=== PATIENT | female | born 1960 | race Two or more races ===

== ENCOUNTER 2019-02-17 07:46 | Inpatient (IN) | payer SELFPAY ==
[~2019-02-17] VITALS: Ht 152.4 cm; Wt 69.8 kg
[2019-02-17] MEDS ORDERED: SODIUM CHLORIDE 0.9% 500 ML IVB ONE (08:21)
[2019-02-17] MEDS ORDERED: ONDANSETRON HCL 4 MG/2 ML VIAL IV ONE (08:30)
[2019-02-17] MEDS ORDERED: MORPHINE SULFATE 4 MG/ML SYR/VIAL IV ONE (08:30)
[2019-02-17 08:34] LABS: Basophils # (auto) 0 uL; Basophils % (auto) 0.5 % (0.0-2.0); Eosinophils # (auto) 0.1 uL; Eosinophils % (auto) 1.8 % (0.0-7.0); Hemoglobin 13.7 g/dL (12.2-16.2); Lymphocytes # (auto) 2.7 uL; Lymphocytes % (auto) 34.3 % (10.0-50.0); Mean Corpuscular Hemoglobin 29.5 pg (28.0-32.0); Mean Corpuscular Hgb Conc. 33.5 g/dL (32.0-36.0); Monocytes # (auto) 0.7 uL; Monocytes % (auto) 9.5 % (0.0-12.0); Neutrophils # (auto) 4.2 uL; Neutrophils % (auto) 53.9 % (37.0-80.0); Nucleated Red Blood Cells % 0.1 %; Platelet Count (auto) 316 10^3/uL (140-450); Red Blood Cells 4.66 10^6/uL (4.0-5.20); White Blood Cell 7.8 10^3/uL (4.4-10.8)
[2019-02-17 08:45] LABS: Alanine Aminotransferase 32 U/L (13-56); Albumin 3.4 g/dL (3.4-5.0); Anion Gap 10 (5-15); Aspartate Aminotransferase 26 U/L (15-37); BUN/Creatinine Ratio 24.6; Blood Urea Nitrogen 14 mg/dL (7-18); Calcium 8.4 mg/dL (8.5-10.1); Carbon Dioxide 24 mmol/L (21-32); Chloride 107 mmol/L (98-107); GFR African American 139 mL/min; GFR Non-African American 115 mL/min; Glucose 94 mg/dL (74-106); Potassium 3.8 mmol/L (3.5-5.1); Sodium 141 mmol/L (136-145)
[2019-02-17 08:48] LABS: Alkaline Phosphatase 99 U/L (45-117); Bilirubin, Total 0.3 mg/dL (0.2-1.0); Total Protein 8.4 g/dL (6.4-8.2)
[2019-02-17 09:11] LABS: Urine Bacteria NONE SEEN /hpf (None Seen); Urine Blood Negative /uL (Negative); Urine Specific Gravity 1.011 (1.001-1.035); Urine WBC 2 /hpf (0 - 5)
[2019-02-17 09:29] LABS: Amylase 87 U/L (25-115); Lipase 133 U/L (73-393)
[2019-02-17] MEDS ORDERED: IOHEXOL 300 MG/ML 100ML BOTTLE IJ ONE (10:00)
[2019-02-17] MEDS ORDERED: TEMAZEPAM 15 MG CAP PO PRN (13:00)
[2019-02-17] MEDS ORDERED: PROMETHAZINE HCL 25 MG/ML 1ML IV PRN (13:00)
[2019-02-17] MEDS ORDERED: ACETAMINOPHEN 500 MG TAB PO PRN (13:00)
[2019-02-17] MEDS ORDERED: MORPHINE SULFATE 4 MG/ML SYR/VIAL IV PRN (13:00)
[2019-02-17] MEDS ORDERED: LORazepam 0.5 MG TAB PO PRN (13:00)
[2019-02-17] MEDS: SODIUM CHLORIDE 0.9% 1,000 ML IV SCH ×2 (14:18→22:50)
[2019-02-17 15:32] LABS: INR 0.94 (0.9-1.15); Partial Thromboplastin Time 27.6 sec (23.64-32.05)
[2019-02-17] MEDS ORDERED: MORPHINE SULF INJ 2 MG/ML SYRINGE 1ML IV PRN (17:30)
--- NOTE | 2019-02-17 19:30 | NUR ---
Opening Shift Note Assumed care of patient, awake and alert. No S/S of distress/SOB or pain. Instructed on POC and to call for assist PRN, Daughter at bedside translating. Will continue to monitor for changes Q1hr and PRN. Side rails up x2. Bed locked in lowest position. Call light within reach.
[2019-02-17] MEDS: traMADol HCL 50 MG TAB PO PRN (19:48)
[2019-02-17] MEDS: FAMOTIDINE 20 MG TAB PO SCH (21:42)
[2019-02-17 22:00] VITALS: BP 151/81
[2019-02-18 05:00] VITALS: BP 129/77
--- NOTE | 2019-02-18 07:34 | NUR ---
Endorsed care to day shift RN.
--- NOTE | 2019-02-18 07:55 | NUR ---
AAOX4, KAZAKH SPEAKING, DENIED OF PAIN OR ANY DISCOMFORT AT THIS TIME. IV TO LEFT AC 20 INFUSING WITH NS @ 100ML/HR. ENCOURAGED PT TO CALL FOR ASSISTANCE WHEN NEEDED. BED LOCKED IN THE LOWEST POSITION, CALL LIGHT WITHIN EASY REACH, WILL CONTINUE TO MONITOR.
[2019-02-18 08:00] VITALS: BP 141/62
[2019-02-18 09:00] VITALS: BP 141/62
[2019-02-18] MEDS: FAMOTIDINE 20 MG TAB PO SCH (09:54)
[2019-02-18] MEDS: SODIUM CHLORIDE 0.9% 1,000 ML IV SCH (09:54)
[2019-02-18] MEDS: traMADol HCL 50 MG TAB PO PRN ×2 (09:54→16:56)
[2019-02-18 13:00] VITALS: BP 143/82
[2019-02-18] MEDS ORDERED: hydrALAZINE HCL 10 MG TAB PO PRN (16:45)
[2019-02-18 17:00] VITALS: BP 162/85
--- NOTE | 2019-02-18 17:41 | NUR ---
OBTAINED NEW ORDER FROM DR. PIERCE. DISCHARGE PT HOME, FOLLOW UP AT [facility] PER FAMILY REQUESTING. NEW PRESCRIPTION: TRAMADOL 50MG PO Q 6HR PRN FOR PAIN 30TAB.
[2019-02-18 18:01] VITALS: BP 141/61
--- NOTE | 2019-02-18 18:30 | NUR ---
PRESCRIPTION FOR TRAMADOL 50MG PO Q6HRS PRN CALLED IN @ [facility] [address] [place]. SPOKE TO PHARMACIST TU.
--- NOTE | 2019-02-18 19:27 | NUR ---
Discharge instructions given as ordered. Encourage to follow up with PCP Dr. Cardoza and follow up at [facility] or [facility] as instructed. All questions and concerns addressed. Patient verbalized understanding. Medication reconciliation form completed and copy given to patient. IV removed with catheter intact, pressure dressing applied. Patient taken to vehicle via wheelchair with all personal belongings, accompanied by staff and family member. No distress noted at time of departure.
== END 2019-02-18 19:00 | disposition home or self-care (01) | DRG 700 ==
LOC: ER 07:46 → OVERFLOW 07:47 → EAST 17:00
PROVIDERS: ADMIT Internal Medicine; ATTEND Internal Medicine
DX: N28.89 Other specified disorders of kidney and ureter (principal); K76.0 Fatty (change of) liver, not elsewhere classified; I10 Essential (primary) hypertension; E66.9 Obesity, unspecified; Z98.51 Tubal ligation status; Z83.3 Family history of diabetes mellitus; Z68.30 Body mass index [BMI] 30.0-30.9, adult
CPT/HCPCS: 36415; 71250; 74177; 76700; 80053; 81001; 82150; 83690; 84484; 85025; 85610; 85730; 93005; 94761; 96361; 96374; 96375; G0378; J2405